=== PATIENT | female | born 1975 | race Caucasian/White ===

== ENCOUNTER 2016-10-08 17:59 | Inpatient (IN) | payer MEDICAID ==
[~2016-10-08] VITALS: Ht 151.1 cm; Wt 68.9 kg
[2016-10-08 18:06] VITALS: BP 136/73
[2016-10-08 21:30] LABS: BASOPHILS # (AUTO) 0.2 K/uL (0.00-0.22); BASOPHILS % (AUTO) 1.2 % (0.0-2.0); EOSINOPHILS # (AUTO) 0.3 K/uL (0-0.4); EOSINOPHILS % (AUTO) 2.2 % (0.0-4.0); HEMATOCRIT 40.7 % (36-48); HEMOGLOBIN 13.7 g/dL (12.0-16.0); LYMPHOCYTES # (AUTO) 1.6 K/uL (2.5-16.5); MEAN CORPUSCULAR HEMOGLOBIN 29 pg (27-31); MEAN CORPUSCULAR HGB CONC 34 g/dL (33-37); MEAN CORPUSCULAR VOLUME 86 fL (80-94); MONOCYTES # (AUTO) 0.3 K/uL (0.8-1.0); MONOCYTES % (AUTO) 2.7 % (1.7-9.3); NEUTROPHILS # (AUTO) 10.3 K/uL (1.8-7.7); NEUTROPHILS % (AUTO) 80.9 % (42.2-75.2); PLATELET COUNT (AUTO) 235 K/uL (140-450); RED BLOOD CELL COUNT(AUTO) 4.72 MIL/uL (4.20-5.40); RED CELL DISTRIBUTION WIDTH 12.3 % (11.6-13.7); WHITE BLOOD COUNT (AUTO) 12.7 K/uL (4.8-10.8)
[2016-10-08 21:41] LABS: ANION GAP 15.7 (8-16); CALCIUM 8.7 mg/dL (8.5-10.1); CARBON DIOXIDE 23.9 mmol/L (21-32); CREATININE 0.6 mg/dL (0.6-1.3); POTASSIUM 3.6 mmol/L (3.5-5.1)
[2016-10-08 21:47] LABS: ALBUMIN 3.5 g/dL (3.4-5.0); TOTAL BILIRUBIN 0.4 mg/dL (0.0-1.0); TOTAL PROTEIN, SERUM 8.2 g/dL (6.4-8.2)
--- NOTE | 2016-10-08 22:15 | NUR ---
PATIENT TO OF1
--- NOTE | 2016-10-08 22:21 | NUR ---
41Y/F PATIENT PRESENTS TO ED WITH C/O ABDOMINAL PAIN X 4 DAYS. PT STATES PAIN STARTED 4 DAYS GO TO RLQ . DENIES N/V/D; SKIN IS PINK/WARM/DRY; AAOX4 WITH EVEN AND STEADY GAIT; LUNGS CLEAR BL; HR EVEN AND REGULAR; PT DENIES ANY FEVER, CP, SOB, OR COUGH AT THIS TIME; PATIENT STATES PAIN OF 4/10 AT THIS TIME; VSS; PATIENT POSITIONED FOR COMFORT; HOB ELEVATED; BEDRAILS UP X2; BED DOWN. ER MD MADE AWARE OF PT STATUS.
[2016-10-08] MEDS ORDERED: KETOROLAC 30 MG/ML VIAL IM ONE (22:35)
[2016-10-09] MEDS ORDERED: metroNIDAZOLE 500 MG/NS PREMIX 100 ML IV ONE (00:10)
[2016-10-09] MEDS ORDERED: PIPERACILLIN/TAZOBACTAM 3.375 GM in DEXTROSE 5% 50 ML IV ONE (00:10)
[2016-10-09] MEDS ORDERED: MORPHINE SULFATE 4 MG/ML SYR IVP ONE (00:10)
[2016-10-09] MEDS ORDERED: ONDANSETRON 4 MG/2 ML VIAL IVP ONE (00:10)
[2016-10-09] MEDS ORDERED: NACL 0.9% 2,000 ML IV ONE (00:10)
--- NOTE | 2016-10-09 00:10 | NUR ---
MOVED TO ER BED 8
--- NOTE | 2016-10-09 00:15 | NUR ---
RECEIVED REPORT FROM KHUSHBOO BILLINGS FOR TRANSFER OF CARE.
[2016-10-09] MEDS ORDERED: PIPERACILLIN/TAZOBACTAM 3.375 GM VIAL IV ONE ×2 (00:20→05:50)
[2016-10-09] MEDS ORDERED: MORPHINE SULFATE 2 MG/ML SYR IVP PRN (00:30)
[2016-10-09] MEDS ORDERED: ACETAMINOPHEN 325 MG TAB PO PRN (00:30)
[2016-10-09] MEDS ORDERED: METF500T PO (00:31)
--- NOTE | 2016-10-09 00:40 | NUR ---
RECEIVED REPORT FROM ED RN FOR CONTINUITY OF CARE. 41 Y.O. FEMALE BROUGHT TO TELEMETRY UNIT FOR DX: APPENDICITIS. PATIENT IS A&OX4, DISCUSSED PLAN OF CARE WITH PATIENT, ORIENTED PT TO ROOM, VERBALIZED UNDERSTANDING. SHIFT ASSESSMENT DONE, VS TAKEN, STABLE AT THIS TIME. NO S/S OF RESPIRATORY DISTRESS NOTED ON ROOM AIR. PATIENT DENIES PAIN. IV TO RT FA 22 GAUGE PATENT AND INFUSING FLUIDS WELL. SKIN INTACT. MRSA SWAB COLLECTED, WRISTBANDS APPLIED. CALL LIGHT PLACED WITHIN REACH. WILL CONTINUE TO MONITOR.
--- NOTE | 2016-10-09 00:41 | NUR ---
Patient will be admitted to care of DR GONZALEZ. Admited to TELE. Will go to room 122A. Belongings list completed. Report to KHUSHBOO KNIGHT.
[2016-10-09 00:50] LABS: APPEARANCE,URINE TURBID (CLEAR); BILIRUBIN,URINE NEGATIVE (NEGATIVE); BLOOD, URINE NEGATIVE (NEGATIVE); LEUKOCYTE ESTERASE ,URINE NEGATIVE (NEGATIVE); NITRITE, URINE NEGATIVE (NEGATIVE); PROTEIN,URINE NEGATIVE (NEGATIVE); UGLUCOSE NEGATIVE (NEGATIVE)
[2016-10-09 00:51] LABS: INR 1.1 (0.8-1.2); PARTIAL THROMBOPLASTIN TIME 29.5 secs (22-35.6); PROTHROMBIN TIME 10.4 secs (10.8-13.4)
[2016-10-09 00:54] LABS: CHOL/HDL RATIO 2.6 (1-4.5)
[2016-10-09 00:58] LABS: AMPHETAMINE, URINE NEG. ng/ml (NEG <=1000); BARBITURATE, URINE NEG. ng/ml (NEG <=200); BENZODIAZEPINE, URINE NEG. ng/mL (NEG <=200); CANNABINOID, URINE NEG. ng/mL (NEG <=50); COCAINE, URINE NEG. ng/mL (NEG <=300); OPIATE, URINE NEG. ng/mL (NEG <=2000); PHENCYCLIDINE SCREEN,URINE NEG. ng/mL (NEG <=25)
[2016-10-09 01:25] LABS: FREE T4 (FREE THYROXINE) 1.17 ng/dL (0.76-1.46); THYROID STIMULATING HORMONE 0.61 uIU/mL (0.34-3.76)
[2016-10-09] MEDS: NACL 0.9% 1,000 ML IV SCH ×2 (01:36→11:06)
[2016-10-09 01:40] VITALS: BP 104/61
--- NOTE | 2016-10-09 02:17 | NUR ---
PT IS RESTING IN BED. NO S/S OF DISTRESS OR DISCOMFORT NOTED. WILL CONTINUE TO MONITOR.
[2016-10-09 03:41] LABS: COLOR,URINE PINK (YELLOW)
[2016-10-09 03:42] LABS: BACTERIA,URINE None Seen /HPF (None Seen); MUCUS,URINE 4+ /LPF (None Seen); RBC,URINE NONE SEEN /HPF (0-5); SQUAMOUS EPITHELIAL CELL,UR None Seen /LPF (0-3 (FEW)); WBC,URINE NONE SEEN /HPF (0-5)
[2016-10-09 03:43] LABS: URINE AMORPHOUS URATE 4+ /HPF (None Seen)
--- NOTE | 2016-10-09 03:50 | NUR ---
ASSISTED PATIENT TO USE BREAST PUMP. PT STATES SHE DOES NOT WANT TO SAVE MILK DUE TO MEDICATIONS. CALL LIGHT WITHIN REACH.
[2016-10-09 04:00] VITALS: BP 105/57
--- NOTE | 2016-10-09 04:32 | NUR ---
VS TAKEN, STABLE. PT AMBULATED TO RESTROOM, VOIDED. NO DISTRESS NOTED. CALL LIGHT WITHIN REACH.
[2016-10-09] MEDS ORDERED: PIPERACILLIN/TAZOBACTAM 3.375 GM in DEXTROSE 5% 50 ML IV SCH (06:00)
--- NOTE | 2016-10-09 06:07 | NUR ---
PT IS SLEEPING. NO S/S OF DISTRESS OR DISCOMFORT NOTED. WILL CONTINUE TO MONITOR.
[2016-10-09] MEDS: metroNIDAZOLE 500 MG/NS PREMIX 100 ML IV SCH ×3 (06:29→19:03)
--- NOTE | 2016-10-09 07:29 | NUR ---
ENDORSED PATIENT TO DAY RN FOR CONTINUITY OF CARE, PATIENT IS IN STABLE CONDITION.
--- NOTE | 2016-10-09 07:30 | NUR ---
RECEIVED REPORT FROM NIGHT RN. PT RESTING IN BED. AAOX4. NO S/S OF ACUTE DISTRESS. PT DENIES PAIN. IV SITE PATENT AND INTACT. CALL LIGHT WITHIN REACH. SAFETY MEASURES ENSURED. WILL CONTINUE TO MONITOR.
[2016-10-09 08:00] VITALS: BP 120/78
--- NOTE | 2016-10-09 08:03 | NUR ---
PATIENT HAS BEEN SCREENED AND CATEGORIZED MODERATE NUTRITION RISK. PATIENT WILL BE SEEN WITHIN 3-5 DAYS OF ADMISSION. 10/11/16-10/13/[address]
--- NOTE | 2016-10-09 08:40 | NUR ---
PT TAKEN OFF UNIT TO OR.
[2016-10-09] MEDS: metFORMIN 500 MG TAB PO SCH (09:00)
[2016-10-09] MEDS ORDERED: BUPIVACAINE-MPF/EPI 0.25% 30 ML VIAL INJ ONE ×2 (09:43→11:19)
[2016-10-09] MEDS ORDERED: MIDAZOLAM 2 MG/2 ML VIAL ONE (09:56)
[2016-10-09] MEDS ORDERED: fentaNYL 0.05 MG/ML VIAL ONE (09:56)
[2016-10-09] MEDS ORDERED: DEXAMETHASONE 4 MG/ML VIAL ONE (11:18)
[2016-10-09] MEDS ORDERED: PHENYLEPHRINE 10 MG/ML VIAL ONE (11:18)
[2016-10-09] MEDS ORDERED: ROCURONIUM 50 MG/5 ML VIAL IV ONE (11:18)
[2016-10-09] MEDS ORDERED: KETOROLAC 30 MG/ML VIAL ONE (11:18)
[2016-10-09] MEDS ORDERED: DESFLURANE 240 ML BTL INH ONE (11:18)
[2016-10-09] MEDS ORDERED: PROPOFOL 200 MG/20 ML VIAL IV ONE (11:18)
[2016-10-09] MEDS ORDERED: SUCCINYLCHOLINE CHLORIDE 200 MG/10 ML VIAL IVP ONE (11:18)
[2016-10-09] MEDS ORDERED: GLYCOPYRROLATE 0.2 MG/ML VIAL ONE (11:18)
[2016-10-09] MEDS ORDERED: LIDOCAINE 2% 100 MG/5 ML SYR IVP ONE (11:18)
[2016-10-09] MEDS ORDERED: DEXTROSE 50% 50 ML SYR IVP PRN (11:25)
[2016-10-09] MEDS: BLOOD GLUCOSE MONITORING 1 DEV DEV FS SCH ×3 (11:30→20:47)
[2016-10-09] MEDS ORDERED: ONDANSETRON 4 MG/2 ML VIAL IVP PRN (11:35)
[2016-10-09] MEDS: PIPER/TAZO 3.375GM/D5W PREMIX 50 ML IV SCH ×3 (12:00→23:14)
[2016-10-09] MEDS: DEXT 5% / NACL 0.45% 1,000 ML IV SCH ×2 (12:35→22:35)
[2016-10-09] MEDS: HYDROmorphone 1 MG/ML AMP IVP PRN ×2 (12:50→13:00)
[2016-10-09] MEDS ORDERED: HYDROmorphone PFS 2 MG/ML SYR ONE (12:53)
[2016-10-09 13:21] VITALS: BP 126/70
--- NOTE | 2016-10-09 13:21 | NUR ---
PT BACK ON UNIT. NO S/S OF ACUTE DISTRESS. AAOX4. PT DENIES PAIN. IV SITE PATENT AND INTACT.3 INCISIONS TO ABDOMEN NOTED. DEBONE SUPERVISOR. CALL LIGHT WITHIN REACH. SAFETY MEASURES ENSURED. WILL CONTINUE TO MONITOR.
--- NOTE | 2016-10-09 14:48 | NUR ---
PT RESTING IN BED. NO S/S OF ACUTE DISTRESS. PT DENIES PAIN. IV SITE PATENT AND INTACT. CALL LIGHT WITHIN REACH. FAMILY AT BEDSIDE. WILL CONTINUE TO MONITOR.
[2016-10-09 16:00] VITALS: BP 117/63
--- NOTE | 2016-10-09 16:29 | NUR ---
PT SLEEPING IN BED. NO S/S OF ACUTE DISTRESS. CALL LIGHT WITHIN REACH. SAFETY MEASURES ENSURED. WILL CONTINUE TO MONITOR.
--- NOTE | 2016-10-09 19:30 | NUR ---
ENDORSED PLAN OF CARE TO NIGHT RN. PT REMAINS IN STABLE CONDITION.
--- NOTE | 2016-10-09 19:31 | NUR ---
RECEIVED PT IN STABLE CONDITION FROM KHUSHBOO COURTNEY. NO SOB, NO SIGNS OF DISTRESS. VS STABLE ON ROOM AIR. PT IS AOX4, AMBULATORY, BELARUSIAN SPEAKING. FAMILY AT BEDSIDE. PT DENIES PAIN AT THIS TIME. IV TO LT HAND 22G PATENT, ASYMPTOMATIC, INTACT, IVF RUNNING. PT S/P LAP APPE TODAY WITH 3 INCISIONS TO HER ABDOMEN COAT MAKER SEALED WITH GLUE. NO DRAINAGE NOTED, NO S/S INFECTION AT THIS TIME. PLAN OF CARE DISCUSSED WITH PT. SAFETY MEASURE SIN PLACE. CALL LIGHT WITHIN REACH. WILL CONTINUE TO MONITOR.
[2016-10-09 20:00] VITALS: BP 111/59
[2016-10-09] MEDS: INSULIN LISPRO SLIDING SCALE 100 UNITS/ML VIAL SUBQ PRN (20:47)
--- NOTE | 2016-10-09 20:47 | NUR ---
BLOOD SUGAR 188, GAVE PT INSULIN PER MD ORDER. PT TOLERATED WELL. NO SOB, NO SIGNS OF DISTRESS. IV SITE ASYMPTOMATIC, INTACT, PATENT, IVF RUNNING. PT DENIES PAIN AT THIS TIME. PLAN OF CARE DISCUSSED WITH PT. SAFETY MEASURES IN PLACE. CALL LIGHT WITHIN REACH. WILL CONTINUE TO MONITOR.
--- NOTE | 2016-10-09 21:57 | NUR ---
ENDORSED PT IN STABLE CONDITION TO KHUSHBOO GREENE. ALL NEEDS HAVE BEEN MET AT HIS TIME.
--- NOTE | 2016-10-09 21:58 | NUR ---
RECEIVED REPORT FROM KHUSHBOO RAMIREZ FOR TRANSFER OF CARE.
--- NOTE | 2016-10-09 23:45 | NUR ---
ASSISTED PATIENT TO RESTROOM. PATIENT BACK IN BED. SCDS IN PLACE, HOB UP, IVF CONNECTED. NO SOB WILL CONTINUE TO MONITOR.
[2016-10-10] VITALS: BP 107/60
[2016-10-10] MEDS: HYDROcodone/APAP 5/325 MG 1 TAB TAB PO PRN ×3 (00:17→21:51)
[2016-10-10] MEDS: metroNIDAZOLE 500 MG/NS PREMIX 100 ML IV SCH ×4 (00:17→18:26)
--- NOTE | 2016-10-10 02:24 | NUR ---
PT RESTING IN BED. NO SIGNS OF DISCOMFORT AT THIS TIME. NO S/S OF ACUTE RESP DISTRESS AT THIS TIME. WILL CONTINUE TO MONITOR.
[2016-10-10 04:00] VITALS: BP 94/54
--- NOTE | 2016-10-10 05:13 | NUR ---
PT DENIES ANY PAIN AT THIS TIME. SAFETY PRECAUTIONS MAINTAINED. BED IN LOW POSITION HOB UP . WILL CONTINUE TO MONITOR.
[2016-10-10] MEDS: PIPER/TAZO 3.375GM/D5W PREMIX 50 ML IV SCH ×3 (05:16→17:49)
[2016-10-10] MEDS: BLOOD GLUCOSE MONITORING 1 DEV DEV FS SCH ×4 (06:38→21:51)
--- NOTE | 2016-10-10 07:05 | NUR ---
ENDORSED PLAN OF CARE TO KHUSHBOO COURTNEY FOR TRANSFER OF CARE. PT STABLE AT THIS TIME
--- NOTE | 2016-10-10 07:07 | NUR ---
RECEIVED REPORT FROM NIGHT RN. PT RESTING IN BED. AAOX4. NO S/S OF ACUTE DISTRESS. PT DENIES PAIN. IV SITE PATENT AND INTACT. THREE INCISIONS NOTED TO ABDOMEN, GRETA. CALL LIGHT WITHIN REACH. SAFETY MEASURES ENSURED. WILL CONTINUE TO MONITOR.
[2016-10-10 07:09] LABS: BASOPHILS # (AUTO) 0.3 K/uL (0.00-0.22); BASOPHILS % (AUTO) 2.8 % (0.0-2.0); EOSINOPHILS # (AUTO) 0.1 K/uL (0-0.4); HEMATOCRIT 33.3 % (36-48); HEMOGLOBIN 11.2 g/dL (12.0-16.0); LYMPHOCYTES # (AUTO) 1.8 K/uL (2.5-16.5); LYMPHOCYTES % (AUTO) 18.5 % (20.5-51.1); MEAN CORPUSCULAR HEMOGLOBIN 29 pg (27-31); MEAN CORPUSCULAR HGB CONC 34 g/dL (33-37); MEAN CORPUSCULAR VOLUME 87 fL (80-94); MONOCYTES # (AUTO) 0.6 K/uL (0.8-1.0); MONOCYTES % (AUTO) 6.2 % (1.7-9.3); NEUTROPHILS # (AUTO) 7.1 K/uL (1.8-7.7); NEUTROPHILS % (AUTO) 71.5 % (42.2-75.2); PLATELET COUNT (AUTO) 238 K/uL (140-450); RED BLOOD CELL COUNT(AUTO) 3.85 MIL/uL (4.20-5.40); WHITE BLOOD COUNT (AUTO) 9.9 K/uL (4.8-10.8)
[2016-10-10 07:34] LABS: ANION GAP 10.2 (8-16); CALCIUM 8.1 mg/dL (8.5-10.1); CARBON DIOXIDE 27.3 mmol/L (21-32); CREATININE 0.7 mg/dL (0.6-1.3); POTASSIUM 4.5 mmol/L (3.5-5.1)
[2016-10-10 07:41] VITALS: BP 104/54
[2016-10-10 08:17] LABS: T4 (THYROXINE) 7.7 ug/dL (4.5-12.0)
[2016-10-10 08:49] LABS: MAGNESIUM 1.9 mg/dL (1.8-2.4); PHOSPHORUS 3.7 mg/dL (2.5-4.9)
[2016-10-10] MEDS: DEXT 5% / NACL 0.45% 1,000 ML IV SCH ×3 (09:05→21:50)
[2016-10-10] MEDS: metFORMIN 500 MG TAB PO SCH (09:06)
--- NOTE | 2016-10-10 09:36 | NUR ---
PT RESTING IN BED. NO S/S OF ACUTE DISTRESS. PT STATES PAIN IS REDUCED TO 1/10. CALL LIGHT WITHIN REACH. SAFETY MEASURES ENSURED. WILL CONTINUE TO MONITOR.
[2016-10-10 11:03] LABS: HEMOGLOBIN A1C 5.8 % (4.8-5.6)
--- NOTE | 2016-10-10 11:15 | NUR ---
PT UP AND AMBULATING IN HALLWAYS WITH . NO S/S OF ACUTE DISTRESS. PT STATES PAIN 2/10, BUT TOLERABLE. WILL CONTINUE TO MONITOR.
[2016-10-10 12:00] VITALS: BP 108/60
--- NOTE | 2016-10-10 13:59 | NUR ---
PT UP AND AMBULATING IN [place] WITH . NO S/S OF ACUTE DISTRESS. PT STATES PAIN IS TOLERABLE. CALL LIGHT WITHIN REACH. SAFETY MEASURES ENSURED. WILL CONTINUE TO MONITOR.
[2016-10-10 16:00] VITALS: BP 113/58
--- NOTE | 2016-10-10 17:01 | NUR ---
PT RESTING IN BED. NO S/S OF ACUTE DISTRESS. PT DENIES PAIN. CALL LIGHT WITHIN REACH. SAFETY MEASURES ENSURED. WILL CONTINUE TO MONITOR.
--- NOTE | 2016-10-10 19:18 | NUR ---
ENDORSED PLAN OF CARE TO NIGHT RN. PT REMAINS IN STABLE CONDITION.
--- NOTE | 2016-10-10 19:19 | NUR ---
RECEIVED REPORT FROM MORNING NURSE AT BEDSIDE. PT IS AAOX4, MOLDOV[place] SPEAKING, ABLE TO FOLLOW COMMANDS AND MAKE NEEDS KNOWN. DENIES PAIN, NO SOB/DISTRESS NOTED, BREATHING EVEN AND UNLABORED, CLEAR LUNG SOUNDS, ON RA. TELE MONITOR WITH SR. SOFT ABD WITH ACTIVE BOWEL SOUNDS, SURGICAL WOUND SITE, C/D/I, GRETA. CURRENTLY ON FULL LIQUID DIET. IV SITE TO LEFT HAND 22GA, RUNNING WITH D5 1/2 NS, PATENT, NO S/S OF INFILTRATION. AFEBRILE, SKIN IS WARM AND DRY TO TOUCH, AMBULATORY WITH STEADY GAIT. PT'S FAMILY MEMBER AT BEDSIDE, VSS. SAFETY MEASURES MAINTAINED, WILL CONTINUE TO MONITOR.
[2016-10-10 20:00] VITALS: BP 110/60
--- NOTE | 2016-10-10 21:30 | NUR ---
ACCU CHECK DONE WITH RESULT OF 143 MG/DL, NO INSULIN COVERAGE AT THIS TIME, PT C/O PAIN TO ABD WOUND AREA, 12/08. EDUCATED AND MEDICATED.
[2016-10-11] VITALS: BP 104/53
--- NOTE | 2016-10-11 | NUR ---
PT IS ASLEEP IN BED COMFORTABLY, NO CHANGE OF CONDITION OF WOUND SITE. VSS.
[2016-10-11] MEDS: PIPER/TAZO 3.375GM/D5W PREMIX 50 ML IV SCH ×3 (00:26→11:15)
[2016-10-11] MEDS: metroNIDAZOLE 500 MG/NS PREMIX 100 ML IV SCH ×3 (00:26→11:50)
[2016-10-11 04:00] VITALS: BP 137/77
--- NOTE | 2016-10-11 04:00 | NUR ---
PT IS AWAKE, C/O NAUSEA, AND PAIN TO ABD WOUND SITE, EDUCATED AND MEDICATED.
[2016-10-11] MEDS: HYDROcodone/APAP 5/325 MG 1 TAB TAB PO PRN ×2 (04:12→11:24)
[2016-10-11] MEDS: ONDANSETRON 4 MG/2 ML VIAL IVP PRN ×2 (04:13→13:13)
[2016-10-11 06:31] LABS: BASOPHILS # (AUTO) 0.1 K/uL (0.00-0.22); BASOPHILS % (AUTO) 1.1 % (0.0-2.0); EOSINOPHILS # (AUTO) 0.2 K/uL (0-0.4); HEMATOCRIT 31.7 % (36-48); HEMOGLOBIN 10.5 g/dL (12.0-16.0); LYMPHOCYTES # (AUTO) 2.2 K/uL (2.5-16.5); LYMPHOCYTES % (AUTO) 33.7 % (20.5-51.1); MEAN CORPUSCULAR HEMOGLOBIN 29 pg (27-31); MEAN CORPUSCULAR HGB CONC 33 g/dL (33-37); MEAN CORPUSCULAR VOLUME 88 fL (80-94); MONOCYTES # (AUTO) 0.5 K/uL (0.8-1.0); MONOCYTES % (AUTO) 7.1 % (1.7-9.3); NEUTROPHILS # (AUTO) 3.6 K/uL (1.8-7.7); NEUTROPHILS % (AUTO) 55.1 % (42.2-75.2); PLATELET COUNT (AUTO) 210 K/uL (140-450); RED CELL DISTRIBUTION WIDTH 12.5 % (11.6-13.7); WHITE BLOOD COUNT (AUTO) 6.6 K/uL (4.8-10.8)
[2016-10-11] MEDS: BLOOD GLUCOSE MONITORING 1 DEV DEV FS SCH ×2 (06:33→11:12)
[2016-10-11 06:46] LABS: MAGNESIUM 1.7 mg/dL (1.8-2.4); PHOSPHORUS 3.2 mg/dL (2.5-4.9)
[2016-10-11 06:51] LABS: ANION GAP 12.5 (8-16); CALCIUM 7.8 mg/dL (8.5-10.1); CREATININE 0.6 mg/dL (0.6-1.3); POTASSIUM 3.5 mmol/L (3.5-5.1)
--- NOTE | 2016-10-11 07:00 | NUR ---
PT AWAKE ALERT AND ORIENTED X4, ICELANDIC SPEAKING. BREATHING EVENLY AND UNLABORED. NO SIGNS OF ACUTE DISTRESS. SKIN IS WARM AND DRY, NOTED PT S/P LAP APPY WITH 3 SURGICAL INCISIONS ON ABDOMINAL AREA, KEPT CLEAN DRY AND INTACT. NO SIGNS OF ANY BLEEDING OR DISCHARGE. NO C/O ANY NAUSEA OR VOMITING, DENIES OF ANY BLADDER DISCOMFORT OR PAIN. ALL NEEDS ATTENDED, SAFETY PRECAUTIONS MAINTAINED. CALL LIGHT WITHIN REACH.
--- NOTE | 2016-10-11 07:25 | NUR ---
REPORT GIVEN TO MORNING SHIFT NURSE FOR CONTINUE OF CARE. PT IS CURRENTLY IN STABLE CONDITION.
[2016-10-11] MEDS ORDERED: LACTULOSE 20 GM/30 ML UDC PO SCH (07:43)
[2016-10-11 07:50] VITALS: BP 107/68
[2016-10-11] MEDS: metFORMIN 500 MG TAB PO SCH (08:42)
[2016-10-11] MEDS ORDERED: SACC250C4 PO (10:45)
[2016-10-11] MEDS ORDERED: DOCU-67 PO (10:45)
[2016-10-11] MEDS ORDERED: SIME80CT70 PO (10:45)
[2016-10-11] MEDS ORDERED: HYDR-4446 PO (10:45)
[2016-10-11] MEDS ORDERED: BISA5TAB79 PO (10:45)
[2016-10-11] MEDS ORDERED: ONDA4ODT8 PO (10:45)
[2016-10-11] MEDS ORDERED: CEPH250C16 PO (10:53)
[2016-10-11] MEDS ORDERED: METR250T2 PO (10:53)
--- NOTE | 2016-10-11 11:12 | NUR ---
RECEIVED NEW ORDER, TRANSFER TO [facility] SURGE MONITORING. NOTED AND CARRIED OUT.
[2016-10-11] MEDS: INSULIN LISPRO SLIDING SCALE 100 UNITS/ML VIAL SUBQ PRN (11:13)
[2016-10-11] MEDS: DEXT 5% / NACL 0.45% 1,000 ML IV SCH (11:15)
[2016-10-11 12:00] VITALS: BP 120/62
--- NOTE | 2016-10-11 12:02 | NUR ---
WAS SEEN BY DR. MORGAN, RECEIVED NEW ORDER MAY D/C HOME TODAY. D/C INSTRUCTIONS REVIEWED WITH PT AT BEDSIDE WITH MD AND TOOL CHECKER. EDUCATED WITH CONTINUING PLAN OF CARE, FOLLOW UP WITH PCP IN 1 WEEK. PRESCRIPTIONS REVIEWED, INDICATIONS AND SIDE EFFECTS. PT. VERBALIZED UNDERSTANDING. MADE AWARE PICKUP BY FAMILY ESTIMATED TIME IS AT 1500.
--- NOTE | 2016-10-11 14:30 | NUR ---
PT ALERT AND RESPONSIVE, NO SIGNS OF ACUTE DISTRESS. OCTOBER D/C HOME ORDERED. IV LINE AND WRIST BANDS REMOVED. PERSONAL BELONGINGS WITH PT UPON DISCHARGE. PICKED UP BY FAMILY, ESCORTED TO FRONT LOBBY BY WHEELCHAIR. TO GO HOME BY PRIVATE AUTO.
== END 2016-10-11 14:30 | disposition home or self-care (01) | DRG 952 ==
LOC: MED 17:59 → MTU 10-09 00:26
PROVIDERS: ADMIT Family Medicine; ATTEND Family Medicine
PROC: 0DTJ4ZZ Resection of Appendix, Percutaneous Endoscopic Approach (ICD-10-PCS; principal; 2016-10-09 11:30)
DX: O99.63 Diseases of the digestive system complicating the puerperium (principal); N17.0 Acute kidney failure with tubular necrosis; D68.59 Other primary thrombophilia; E83.42 Hypomagnesemia; E11.52 Type 2 diabetes mellitus with diabetic peripheral angiopathy with gangrene; K35.80 Unspecified acute appendicitis; E11.9 Type 2 diabetes mellitus without complications; D64.9 Anemia, unspecified; E66.9 Obesity, unspecified; Z68.30 Body mass index [BMI] 30.0-30.9, adult; Z79.899 Other long term (current) drug therapy; Z83.3 Family history of diabetes mellitus; Z84.89 Family history of other specified conditions
CPT/HCPCS: 36415; 80048; 80053; 80305; 81001; 82948; 83036; 83690; 83735; 84100; 84436; 84439; 84443; 84479; 84702; 85025; 85610; 85730; 86886; 86900; 86901; 87081; 88304; 96372; 96374; 96375; 99285; J0330; J1100; J1170; J1815; J1885; J2001; J2250; J2270; J2370; J2405; J2543; J2704; J3010; J3490; J7030; J7060